=== PATIENT | male | born 1975 | race Caucasian/White ===

== ENCOUNTER 2022-10-04 20:37 | Inpatient (IN) | payer MEDICAID ==
[~2022-10-04] VITALS: Ht 167.6 cm; Wt 73.9 kg
[2022-10-04 21:15] LABS: BASOPHILS % 0.3 % (0.0-2.0); HEMATOCRIT. 24.7 % (42.0-52.0); HEMOGLOBIN. 8.7 g/dL (14.0-18.0); LYMPHOCYTES % 39.2 % (20.0-50.0); MEAN CORPUSCULAR HEMOGLOBIN 32.4 pg (28.0-32.0); MEAN PLATELET VOLUME 8.8 fl (7.4-10.4); MONOCYTES % 8.6 % (2.0-8.0); NEUTROPHILS % 49.9 % (40.0-76.0); PLATELET 192 x1000/uL (130-400); RED BLOOD CELL COUNT 2.69 mill/uL (4.7-6.1); RED CELL DISTRIBUTION WIDTH 12.5 % (11.6-14.6)
[2022-10-04 21:25] LABS: CHLORIDE 110 mEq/L (98-107)
[2022-10-04 21:27] LABS: PROTHROMBIN TIME 11.2 sec (9.6-11.0)
[2022-10-04] MEDS ORDERED: ONDANSETRON HCL 4MG/2ML INJ IV NR (21:43)
[2022-10-04] MEDS ORDERED: ONDANSETRON HCL 4MG/2ML INJ IV STA (21:43)
[2022-10-04] MEDS ORDERED: PANTOPRAZOLE SODIUM 40 MG/VIAL IV ONE (21:45)
[2022-10-04] MEDS ORDERED: PANTOPRAZOLE SODIUM 40 MG/VIAL IV NR (21:45)
[2022-10-04] MEDS ORDERED: SODIUM CHLORIDE 0.9% 1,000 ML IV ONE (21:45)
[2022-10-05] MEDS ORDERED: MAGNESIUM/ALUMINUM HYDROXIDE/SIMETHICONE 30ML UDC PO PRN (00:30)
[2022-10-05] MEDS ORDERED: DIPHENHYDRAMINE 50MG/ML VIAL IV PRN (00:30)
[2022-10-05] MEDS ORDERED: ACETAMINOPHEN 325MG TABLET PO PRN (00:30)
[2022-10-05] MEDS: SODIUM CHLORIDE 0.9% 1,000 ML IV SCH ×3 (00:30→11:11)
[2022-10-05] MEDS ORDERED: ONDANSETRON HCL 4MG/2ML INJ IV PRN (00:30)
[2022-10-05 05:16] LABS: BASOPHILS % 0.4 % (0.0-2.0); EOSINOPHILS % 2.6 % (0.0-5.0); HEMATOCRIT. 21.2 % (42.0-52.0); HEMOGLOBIN. 7.5 g/dL (14.0-18.0); LYMPHOCYTES % 45.8 % (20.0-50.0); MEAN CORPUSCULAR HEMOGLOBIN 32.2 pg (28.0-32.0); MEAN CORPUSCULAR VOLUME 91.7 fL (80.0-94.0); MEAN PLATELET VOLUME 8.5 fl (7.4-10.4); MONOCYTES % 7.4 % (2.0-8.0); NEUTROPHILS % 43.8 % (40.0-76.0); PLATELET 142 x1000/uL (130-400); RED BLOOD CELL COUNT 2.32 mill/uL (4.7-6.1); RED CELL DISTRIBUTION WIDTH 12.4 % (11.6-14.6)
[2022-10-05 05:26] LABS: CHLORIDE 111 mEq/L (98-107)
[2022-10-05 05:32] LABS: PHOSPHORUS 2.7 mg/dL (2.5-4.9)
[2022-10-05] MEDS: PANTOPRAZOLE SODIUM 40 MG/VIAL IV SCH ×2 (09:26→10:59)
[2022-10-05 10:35] VITALS: BP 115/56
[2022-10-05 12:00] VITALS: BP 105/58
[2022-10-05 12:56] LABS: HEMATOCRIT 21.3 % (42.0-52.0); HEMOGLOBIN 7.4 g/dL (14.0-18.0)
[2022-10-05 14:32] LABS: TOTAL IRON BINDING CAPACITY 204 ug/dL (250-450)
[2022-10-05 15:01] LABS: VITAMIN B12 SERUM 328 pg/mL (211-911)
[2022-10-05 15:07] LABS: FERRITIN 55 ng/mL (22-322)
[2022-10-05 15:58] VITALS: BP 93/58
[2022-10-05 19:33] LABS: HEMOGLOBIN 7.1 g/dL (14.0-18.0)
[2022-10-05 19:44] LABS: HEMATOCRIT 20.4 % (42.0-52.0)
[2022-10-05 20:00] VITALS: BP 105/66
[2022-10-05] MEDS ORDERED: ACETAMINOPHEN 325MG TABLET PO NR (22:45)
[2022-10-05] MEDS ORDERED: DIPHENHYDRAMINE 25MG CAPSULE PO NR (22:45)
[2022-10-05 23:37] LABS: BASOPHILS % 0.3 % (0.0-2.0); EOSINOPHILS % 2.6 % (0.0-5.0); LYMPHOCYTES % 41.8 % (20.0-50.0); MEAN CORPUSCULAR HEMOGLOBIN 32.5 pg (28.0-32.0); MEAN CORPUSCULAR VOLUME 92.9 fL (80.0-94.0); MEAN PLATELET VOLUME 9.1 fl (7.4-10.4); MONOCYTES % 8.1 % (2.0-8.0); NEUTROPHILS % 47.2 % (40.0-76.0); PLATELET 141 x1000/uL (130-400); RED BLOOD CELL COUNT 2.14 mill/uL (4.7-6.1); RED CELL DISTRIBUTION WIDTH 12.8 % (11.6-14.6)
[2022-10-05 23:46] LABS: HEMATOCRIT. 19.9 % (42.0-52.0)
[2022-10-06] VITALS (10 sets, daily range): BP systolic 87–109; BP diastolic 48–67
[2022-10-06] MEDS: DEXT 5%/0.9% NACL 1,000 ML IV SCH (00:01)
[2022-10-06] MEDS: ACETAMINOPHEN 325MG TABLET PO PRN (03:13)
[2022-10-06 06:18] LABS: BASOPHILS % 0.3 % (0.0-2.0); CHLORIDE 113 mEq/L (98-107); EOSINOPHILS % 2.4 % (0.0-5.0); HEMATOCRIT. 22.7 % (42.0-52.0); LYMPHOCYTES % 34.7 % (20.0-50.0); MEAN CORPUSCULAR HEMOGLOBIN 31.9 pg (28.0-32.0); MEAN CORPUSCULAR VOLUME 90.4 fL (80.0-94.0); MEAN PLATELET VOLUME 9.2 fl (7.4-10.4); MONOCYTES % 6.7 % (2.0-8.0); NEUTROPHILS % 55.9 % (40.0-76.0); PLATELET 148 x1000/uL (130-400); RED BLOOD CELL COUNT 2.51 mill/uL (4.7-6.1); RED CELL DISTRIBUTION WIDTH 13.6 % (11.6-14.6)
[2022-10-06 06:40] LABS: INR 1.1; PROTHROMBIN TIME 11.5 sec (9.6-11.0)
[2022-10-06] MEDS ORDERED: PROPOFOL 200MG/20ML VIAL IV ONE (12:30)
[2022-10-06] MEDS ORDERED: CYANOCOBALAMIN 1000MCG/ML VIAL IM NR (15:30)
[2022-10-06] MEDS ORDERED: FOLIC ACID 1 MG in SODIUM CHLORIDE 0.9% 500 ML IV ONE (16:30)
[2022-10-06 16:35] LABS: HEMATOCRIT 25.2 % (42.0-52.0); HEMOGLOBIN 8.8 g/dL (14.0-18.0)
[2022-10-07] VITALS: BP 99/55
[2022-10-07 04:00] VITALS: BP 99/54
[2022-10-07 06:52] LABS: HEMATOCRIT 26.5 % (42.0-52.0); HEMOGLOBIN 9.2 g/dL (14.0-18.0); MEAN CORPUSCULAR HEMOGLOBIN 31.6 pg (28.0-32.0); MEAN CORPUSCULAR VOLUME 91.1 fL (80.0-94.0); PLATELET 192 x1000/uL (130-400); RED BLOOD CELL COUNT 2.91 mill/uL (4.7-6.1)
[2022-10-07 08:00] VITALS: BP 100/56
[2022-10-07] MEDS: ACETAMINOPHEN 325MG TABLET PO PRN (09:16)
[2022-10-07] MEDS: DEXT 5%/0.9% NACL 1,000 ML IV SCH (09:17)
[2022-10-07] MEDS: PANTOPRAZOLE SODIUM 40 MG/VIAL IV SCH (09:23)
[2022-10-07 12:00] VITALS: BP 108/67
[2022-10-07 12:38] VITALS: BP 108/67
== END 2022-10-07 13:28 | disposition home or self-care (01) | DRG 241 ==
LOC: ER 20:37 → 6EST 10-05 10:35
PROVIDERS: ADMIT Internal Medicine; ATTEND Internal Medicine
PROC: 0DB78ZX Excision of Stomach, Pylorus, Via Natural or Artificial Opening Endoscopic, Diagnostic (ICD-10-PCS; principal; 2022-10-06)
PROC: 30233N1 Transfusion of Nonautologous Red Blood Cells into Peripheral Vein, Percutaneous Approach (ICD-10-PCS; 2022-10-06)
DX: K29.01 Acute gastritis with bleeding (principal); E44.0 Moderate protein-calorie malnutrition; I95.9 Hypotension, unspecified; F32.A Depression, unspecified; F17.210 Nicotine dependence, cigarettes, uncomplicated; D50.0 Iron deficiency anemia secondary to blood loss (chronic); K29.81 Duodenitis with bleeding; K46.9 Unspecified abdominal hernia without obstruction or gangrene; Z20.822 Contact with and (suspected) exposure to COVID-19; Z79.82 Long term (current) use of aspirin
CPT/HCPCS: 36415; 74176; 80048; 80053; 82607; 82728; 82746; 83540; 83550; 83735; 84100; 85014; 85018; 85025; 85027; 85044; 86850; 86900; 86920; 87426; 88305; 93005; 99291; C9113; J2405; J2704; J3420; J3490; J7030; J7040; J7042; P9016